=== PATIENT | male | born 1995 | race African-American/Black ===

== ENCOUNTER 2019-04-24 13:38 | Observation (INO) ==
[2019-04-24] MEDS ORDERED: LIDOCAINE 2% TOP JELLY 20 ML VIAL INTRAURETH ONE (15:38)
[2019-04-24] MEDS ORDERED: cefOXitin 2,000 MG in SYRINGE 1 EACH IV ONE (15:39)
[2019-04-24] MEDS ORDERED: BUPIVACAINE 0.25% /EPI 10 ML VIAL ONE (15:39)
[2019-04-24] MEDS ORDERED: HYDROmorphone 2 MG/1 ML VIAL IV PRN ×2 (15:41→18:01)
[2019-04-24 15:45] LABS: Basophils % 0.2 % (0.0-0.8); Eosinophils % 0.3 % (0.00-10.9); Hematocrit 41.4 VOL% (42.0-52.0); Hemoglobin 13.5 GM/DL (14.0-18.0); Immature Granulocytes % 0.3 %; Immature Granulocytes Absolute 0.04 #; Lymphocytes # 1.4 10*3/uL (1.4-4.0); Lymphocytes % 11.5 % (21.2-54.2); Mean Corpuscular HGB Conc 32.6 GM/DL (32-36); Mean Corpuscular Volume 85.7 FL (87-102); Mean Platelet Volume 10.5 FL (9.6-12.0); Neutrophils % 80.7 % (38.7-73.9); Platelet Count 159 T/CUMM (130-400); Red Blood Count 4.83 MC/CUMM (3.8-5.5); Red Cell Distribution Width 13.2 % (9.3-17.3); White Blood Count 12.1 T/CUMM (4-12)
[2019-04-24 15:55] LABS: PT Patient Result 11.1 SECS (9.6-12.2); Partial Thromboplastin Time 23.6 SECS (20.8-36.0)
[2019-04-24] MEDS ORDERED: ONDANSETRON 4 MG/2 ML VIAL IV PRN ×2 (16:03→18:01)
[2019-04-24] MEDS ORDERED: MEPERIDINE 25 MG/1 ML VIAL IV PRN (16:03)
[2019-04-24] MEDS ORDERED: diphenhydrAMINE 50 MG/1 ML VIAL IV PRN (16:03)
[2019-04-24] MEDS ORDERED: PROMETHAZINE INJ 25 MG in SODIUM CHLORIDE 0.9% 50 ML IV PRN (16:03)
[2019-04-24 16:10] LABS: Calcium 9.6 MG/DL (8.5-10.1); Osmolality,Calculated 270.1 MOS/KG (273-304)
[2019-04-24] MEDS ORDERED: SEVOFLURANE 1 UNIT/15 MINUTE INH ONE (17:26)
[2019-04-24] MEDS ORDERED: propofoL 200 MG/20 ML VIAL IV ONE (17:26)
[2019-04-24] MEDS ORDERED: LIDOCAINE 2% 5 ML VIAL ONE (17:26)
[2019-04-24] MEDS ORDERED: ONDANSETRON 4 MG/2 ML VIAL ONE (17:26)
[2019-04-24] MEDS ORDERED: KETOROLAC 30 MG/1 ML VIAL ONE (17:26)
[2019-04-24] MEDS ORDERED: fentaNYL 100 MCG/2 ML VIAL ONE (17:27)
[2019-04-24] MEDS ORDERED: LACTATED RINGERS 1,000 ML IV SCH (18:01)
[2019-04-24] MEDS ORDERED: PROMETHAZINE 25 MG/1 ML VIAL IM PRN (18:01)
[2019-04-25 07:24] VITALS: BP 108/59
[2019-04-25] MEDS ORDERED: ENOXAPARIN 40 MG/0.4 ML SYRINGE SUBCUT SCH (11:04)
== END 2019-04-25 12:05 | disposition home or self-care (01) ==
LOC: N.ED 13:38 → N.EDINP 13:38 → N.3E 17:54
PROVIDERS: ADMIT Surgery; ATTEND Surgery